=== PATIENT | male | born 1960 | race Caucasian/White ===

== ENCOUNTER 2018-11-17 18:24 | Emergency (ER) | payer BC, MEDICARE ==
[2018-11-17 18:44] VITALS: RESP 16; TEMP 97
[2018-11-17] MEDS ORDERED: KETOROLAC TROMETHAMINE 30 MG/ML SOL ONE (19:42)
[2018-11-17] MEDS: KETOROLAC TROMETHAMINE 30 MG/ML SOL IM ONE (19:45)
[2018-11-17 21:10] VITALS: BP 132/78; PULSE 88; O2SAT 96
== END 2018-11-17 20:30 | disposition home or self-care (01) | DRG 563 ==
LOC: ED 18:24
DX: S92.355A Nondisplaced fracture of fifth metatarsal bone, left foot, initial encounter for closed fracture (principal); S92.212A Displaced fracture of cuboid bone of left foot, initial encounter for closed fracture
CPT/HCPCS: 73630; 96372; 99283; J1885; L4360; E0114

== ENCOUNTER 2018-12-10 09:51 | Outpatient (CLI) | payer BC ==
[2018-11-17 21:10] VITALS: O2SAT 96
== END 2018-12-10 09:52 | disposition home or self-care (01) | DRG 561 ==
LOC: RAD 09:51
PROVIDERS: ATTEND Orthopaedic Surgery
DX: S92.352D Displaced fracture of fifth metatarsal bone, left foot, subsequent encounter for fracture with routine healing (principal); S92.212D Displaced fracture of cuboid bone of left foot, subsequent encounter for fracture with routine healing
CPT/HCPCS: 73630

== ENCOUNTER 2019-01-07 08:42 | Outpatient (CLI) | payer BC ==
[2018-11-17 21:10] VITALS: O2SAT 96
== END 2019-01-07 08:43 | disposition home or self-care (01) | DRG 561 ==
LOC: RAD 08:42
PROVIDERS: ATTEND Orthopaedic Surgery
DX: S92.352D Displaced fracture of fifth metatarsal bone, left foot, subsequent encounter for fracture with routine healing (principal)
CPT/HCPCS: 73630

== ENCOUNTER 2019-01-15 14:52 | Emergency (ER) | payer BC ==
[2019-01-15] MEDS ORDERED: SODIUM CHLORIDE 0.9% 1000ML 1,000 ML IV ONE (15:12)
[2019-01-15 15:30] VITALS: RESP 18; TEMP 98.1
[2019-01-15] MEDS ORDERED: SODIUM CHLORIDE 0.9% FLUSH 10 ML SOL IV PRN (15:30)
[2019-01-15 15:32] LABS: BASOPHILS % (AUTO) 1 % (0-3); EOSINOPHILS % (AUTO) 3 % (0-9); HEMATOCRIT 50 % (39-53); LYMPHOCYTES % (AUTO) 11.5 % (10-50); MEAN CORPUSCULAR HEMOGLOBIN 33.5 pg (27.0-32.0); MEAN CORPUSCULAR HGB CONC 33.7 gm/dl (32.0-36.0); MONOCYTES % (AUTO) 7.8 % (0-12); NEUTROPHILS % (AUTO) 76.5 % (37-80)
[2019-01-15 15:34] LABS: MEAN CORPUSCULAR VOLUME 100 fL (80-100)
[2019-01-15 15:37] LABS: CALCIUM 8.8 mg/dl (8.5-10.1); CARBON DIOXIDE 26.4 mEq/L (21-32); CREATININE 1.03 mg/dl (0.80-1.30); POTASSIUM 4.3 mMol/L (3.5-5.1)
[2019-01-15 15:51] LABS: INR 0.97 (0.86-1.12)
[2019-01-15] MEDS ORDERED: METHYLPREDNISOLONE 1 GM/ML PDS 1,000 MG/16 ML PDS IV ONE (17:56)
[2019-01-15] MEDS ORDERED: METHYLPREDNISOLONE 1 GM/ML PDS 1,000 MG/16 ML PDS ONE (18:01)
[2019-01-15] MEDS ORDERED: WATER, STERILE 20 ML 20 ML ONE (18:08)
[2019-01-15 18:34] VITALS: BP 127/74; PULSE 72; O2SAT 95
== END 2019-01-15 18:44 | disposition home or self-care (01) | DRG 60 ==
LOC: ED 14:52
DX: G35 Multiple sclerosis (principal); R40.2362 Coma scale, best motor response, obeys commands, at arrival to emergency department; R40.2142 Coma scale, eyes open, spontaneous, at arrival to emergency department; R40.2252 Coma scale, best verbal response, oriented, at arrival to emergency department; R53.1 Weakness; R20.0 Anesthesia of skin; D72.829 Elevated white blood cell count, unspecified
CPT/HCPCS: 70544; 70551; 71045; 80048; 85025; 85610; 96365; 96366; 96374; 99284; 99285; J2930